=== PATIENT | male | born 1950 ===

== ENCOUNTER 2022-08-09 21:11 | Emergency (ER) | payer MEDICARE ==
[2022-08-09] MEDS ORDERED: Fluorescein 1 MG Ophth Strip ONE (21:33)
[2022-08-09] MEDS ORDERED: Polymyxin B/Trimethoprim 10 ML Bottle EYERT ONE (21:50)
== END 2022-08-09 21:53 | disposition home or self-care (01) ==
LOC: DL.ED 21:11
DX: S05.01XA Injury of conjunctiva and corneal abrasion without foreign body, right eye, initial encounter (principal)
CPT/HCPCS: 99283